=== PATIENT | female | born 1970 | race Caucasian/White ===

== ENCOUNTER 2019-11-11 16:03 | Emergency (ER) | payer SELFPAY ==
--- NOTE | ~2019-11-11 | XR_ITS ---
XR lumbar spine 2-3V DATE: 11/11/2019 16:47 INDICATION: Lower back pain TECHNIQUE: AP, lateral, coned lateral lumbosacral views COMPARISON: None FINDINGS: There is minimal levoscoliosis of the lumbar spine. No fracture or bone destruction is evident. The included lower thoracic and lumbar pedicles are intac t. There is moderately prominent loss of interspace height and mild spurring at L4-5 consistent with deg enerative disc disease. There is mild degenerative spurring at L1-2 and L2-3. The sacroiliac joints are normal. IMPRESSION: Multilevel degenerative disc disease, most prominent at L4-5 Reviewed, dictated and finalized at location A.
--- NOTE | 2019-11-11 16:14 | ED.ABDPAIN ---
HPI - Abdominal Pain General Chief Complaint: Back Pain/Injury Stated Complaint: my back is out Time Seen by Provider: 11/11/19 16:04 Source: patient Mode of arrival: ambulatory Limitations: no limitations History of Present Illness HPI narrative: Patient is a 49-year-old female who woke with right lower back pain today noting aching pain to the right lower back [facility] chiropractor who attempted to adjust her and had increasing discomfort patient notes aching pain to the right lower back that radiates into the buttock does note history of prior back issues denies injury trauma or recent illness presents in no distress had taken ibuprofen earlier today with minimal improvement Related Data Allergies Allergy/AdvReac Type Severity Reaction Status Date / Time morphine Allergy Unknown Verified 08/16/10 14:52 No Known Drug Allergies Allergy Unknown Verified 10/03/11 20:12 Review of Systems Review of Systems: All systems reviewed & are unremarkable except as noted in HPI and below PMFSH Past Medical History Medical History (Updated 11/11/19 @ 16:17 by Conner Mcfarland PA-C) Obese Surgical History Surgical History (Updated 11/11/19 @ 16:16 by Conner Mcfarland PA-C) Previous section Social History Social History Alcohol intake: never Exam Narrative: Exam Narrative: GENERAL: Well-appearing, well-nourished, and in no acute distress. HEAD: Normocephalic, atraumatic. EYES: PERRLA and EOMI. ENT: Nares clear, no rhinorrhea or epistaxis. Mucous membranes moist. CHEST: Clear to auscultation. No respiratory distress. No wheezes rales or rhonchi HEART: Regular rate and rhythm. No murmur heard. EXTREMITIES: Normal range of motion. No edema. Tenderness of the right lower lumbar region no deformity noted no midline tenderness SKIN: Warm, dry, no rash. NEURO: No focal deficits. Alert and oriented x3. Cranial nerves II through XII grossly intact. Normal speech and gait PSYCH: Normal mood and affect. MDM - Abdominal Pain MDM Narrative Medical decision making narrative: Patients pain is positional in nature and localized to back without signs of cord compression or cauda equina based on neurological exam, skeletal exam and history. No fever or other significant factors to suggest osteomyelitis or spinal epidural abscess. No symptoms or signs to suggest pain is referred from abdominal or / cardiopulmonary sources. No pulsatile masses noted on exam. Patient ambulates with steady gait and is stable for outpatient management given case findings.
[2019-11-11 16:15] VITALS: BP 115/89; PULSE 83; RESP 15; TEMP 36.7; O2SAT 99
[2019-11-11] MEDS: DIAZEPAM 5 MG TABLET PO (16:29)
[2019-11-11] MEDS: KETOROLAC (*BKC) 60 MG/2 ML VIAL IM (16:30)
== END 2019-11-11 17:39 | disposition home or self-care (01) ==
PROVIDERS: Emergency Provider Emergency Medicine; PCP Chiropractor
DX: M54.5 Low back pain (principal)
CPT/HCPCS: 72100; 96372; 99283; A9270; J1885

== ENCOUNTER 2021-09-13 17:39 | Outpatient (CLI) | payer BC, SELFPAY ==
--- NOTE | ~2021-09-13 | MM_ITS ---
EXAMINATION: MM screening cody BI w annamaria HISTORY: Screening TECHNIQUE: Craniocaudal and mediolateral oblique 3-D tomosynthesis images were obtained and synthetic 2-D images were generated. CAD analysis was submitted and interpreted. COMPARISON: Comparison to multiple prior studies sequentially, with oldest reviewed study dated 10/18. BREAST PARENCHYMAL COMPOSITION: The breasts are almost entirely fatty. FINDINGS: There is no evidence of suspicious mass, calcification, or architectural distortion to sugg est malignancy in either breast. There has been no suspicious interval change. IMPRESSION: 1. No mammographic evidence of malignancy. 2. Recommend routine screening mammography in one year. BI-RADS Category 1: Negative Reviewed, dictated and finalized at location A.
== END 2021-09-13 17:40 | disposition home or self-care (01) ==
LOC: ANHIMG 17:41
PROVIDERS: PCP Chiropractor; Visit Provider Nurse Practitioner Obstetrics & Gynecology
DX: Z12.31 Encounter for screening mammogram for malignant neoplasm of breast (principal)
CPT/HCPCS: 77063; 77067

== ENCOUNTER 2022-11-06 18:26 | Emergency (ER) | payer BC, SELFPAY ==
[2022-11-06 18:36] VITALS: BP 109/96; PULSE 88; RESP 14; TEMP 37.3; O2SAT 99
--- NOTE | 2022-11-06 19:36 | ED.URI ---
HPI - URI/Sore Throat General Chief Complaint: Upper Respiratory Infection Stated Complaint: sinus issues Time Seen by Provider: 11/06/22 19:30 Source: patient Mode of arrival: ambulatory Limitations: no limitations History of Present Illness HPI Narrative: 52-year-old female presenting for complaint of cough and chest congestion for 1 week. She has been taking Mucinex without relief. She denies shortness of breath, nausea, vomiting, fevers or chills. She has had some wheezing that clears with coughing. She denies sick contacts. Related Data Home Medications Medication Instructions Recorded Confirmed progesterone micronized 200 mg 100 mg PO DAILY 11/11/19 11/06/22 capsule estradiol 0.05 mg/24 hr semiweekly 1 patch transdermal DIRECTED 11/06/22 11/06/22 transdermal patch paroxetine HCl 10 mg tablet 10 mg PO DAILY 11/06/22 11/06/22 Allergies Allergy/AdvReac Type Severity Reaction Status Date / Time morphine Allergy Unknown Unknown Verified 11/06/22 18:41 Review of Systems Review of Systems: CONSTITUTIONAL: Denies body aches, fever, chills, or sweats. EYES: Denies visual changes, redness, or discharge. ENT: Denies rhinorrhea, congestion, sore throat, or otalgia. CARDIOVASCULAR: Denies chest pain, palpitations, or edema. RESPIRATORY: Reports cough SKIN: Denies rash, itching, or wounds. MUSCULOSKELETAL: Denies back pain, joint pain, or myalgia. NEUROLOGIC: Denies headache, numbness, tingling, or weakness. PSYCH: Denies depression or anxiety. All systems reviewed & are unremarkable except as noted in HPI and below PMFSH Past Medical History Medical History Obese Surgical History Surgical History Previous section Social History Social History Alcohol intake: never Gender identity (if verbalized by the patient): Female Comments At time of signature, I have reviewed and agree with nursing past medical, surgical, social and family history unless otherwise noted. Please see nursing chart for further information. There is no relevant family history pertinent to the presenting complaint Exam Narrative: GENERAL: Well-appearing, in no acute distress. EYES: EOMI. No redness or drainage. Conjunctivae normal. ENT: Mucous membranes pink and moist. No rhinorrhea. TMs normal bilaterally. Throat normal. Hoarse voice uvula midline. NECK: Normal AROM. Supple. CHEST: No respiratory distress. Lungs clear diminished bases HEART: Regular rate and rhythm. No murmur appreciated. ABDOMEN: Soft, nontender, nondistended, normal active bowel sounds. EXTREMITIES: Normal range of motion. No edema. SKIN: Warm, dry, no rash. Capillary refill normal. Normal skin turgor. NEURO: Alert and oriented x3. Gait steady. PSYCH: Normal affect. Course Course Emergency Course: Patient is aware of diagnosis, understands and agrees to treatment plan. Anticipatory guidance given. Patient agrees to follow-up as directed and is aware of reasons to seek care at the emergency department. Portions of this record may have been created with voice recognition software Level of Care: Express Care Visit Vital Signs Vital signs: Vital Signs Temperature 99.1 F 11/06/22 18:36 Pulse Rate 88 11/06/22 18:36 Respiratory Rate 14 11/06/22 18:36 Blood Pressure 109/96 H 11/06/22 18:36 Pulse Oximetry 99 11/06/22 18:36 Oxygen Delivery Room Air 11/06/22 18:36 Temperature 99.1 F 11/06/22 18:36 Pulse Rate 88 11/06/22 18:36 Respiratory Rate 14 11/06/22 18:36 Blood Pressure 109/96 H 11/06/22 18:36 Pulse Oximetry 99 11/06/22 18:36 Oxygen Delivery Room Air 11/06/22 18:36 MDM - URI/Sore Throat MDM Narrative Medical decision making narrative: Discussed physical exam findings. Prescription for steroi
== END 2022-11-06 19:48 | disposition home or self-care (01) ==
PROVIDERS: Emergency Provider Nurse Practitioner Family
DX: J40 Bronchitis, not specified as acute or chronic (principal); E66.9 Obesity, unspecified; Z68.41 Body mass index [BMI] 40.0-44.9, adult
CPT/HCPCS: 99213; G0463